=== PATIENT | female | born 1955 | race Caucasian/White ===

== ENCOUNTER 2021-08-11 20:28 | Inpatient (IN) | payer OTHER, SELFPAY ==
[~2021-08-11 20:28] MED LIST: Iopamidol 370 76% 100 ML VIAL ONE
[2021-08-11 20:58] LABS: #Eosinphils 0.1 10x3/uL (0.0-0.5); #Monocytes 0.6 10x3/uL (0.0-1.1); #Neutrophils 2.9 10x3/uL (1.5-8.4); %Basophils 0.8 % (0.0-2.0); %Eosinophils 1.7 % (0.0-6.0); %Lymphocytes 32.5 % (18.0-47.0); %Monocytes 10.9 % (0.0-10.0); %Neutrophils 53.9 % (40.0-75.0); Hemoglobin 11.8 g/dL (12.0-15.5); Mean Corpuscular HGB CONC 34.2 g/dL (32.0-36.0); Mean Corpuscular Hemoglobin 30.4 pg (27.0-33.0); Mean Corpuscular Volume 88.9 fl (81.6-98.3); Mean Platelet Volume 8.6 fl (7.4-10.4); Platelet Count 302 10x3/uL (150-450); RBC Distribution Width 13.5 % (11.5-14.5); Red Blood Cell (RBC) Count 3.88 10x6/uL (3.90-5.03); White Blood Cell (WBC) Count 5.3 10x3/uL (3.5-10.5)
[2021-08-11 21:13] LABS: ALT (SGPT) 11 U/L (8-55); AST (SGOT) 18 U/L (5-34); Albumin 3.6 g/dL (3.4-4.8); Alkaline Phosphatase 73 U/L (40-110); Anion Gap 14 mmol/L (10-20); BUN (Urea Nitrogen) 12 mg/dL (9.8-20.1); Bilirubin, Total 0.2 mg/dL (0.2-1.2); Calc. Creatinine Clearance 0 mL/min (70-130); Calcium 8.2 mg/dL (7.8-10.44); Carbon Dioxide 22 mmol/L (23-31); Chloride 99 mmol/L (98-107); Globulin 2.9 g/dL (2.4-3.5); Glucose 104 mg/dL (80-115); Lipase 18 U/L (8-78); Potassium 3.9 mmol/L (3.5-5.1); Protein, Total 6.5 g/dL (5.8-8.1); Sodium 131 mmol/L (136-145)
[2021-08-11] MEDS ORDERED: Albuterol Sulfate 2.5 mg/3 ml Neb ONE (21:30)
[2021-08-11] MEDS ORDERED: methylPREDNISolone Sod Succ/PF 125 MG/2 ML VIAL ONE (21:32)
[2021-08-11] MEDS ORDERED: Morphine 4 MG/ML VIAL ONE (21:33)
[2021-08-11 22:59] LABS: Bilirubin Neg (Negative); Blood, Urine 10 (Negative); Clarity Clear (Clear); Glucose, Urine (Dipstick) Normal (Negative); Ketone, Urine Negative (Negative); Leukocyte 25 (Negative); Nitrite Negative (Negative); Protein, Urine (Dipstick) Negative (Neg-Trace); Specific Gravity, Urine 1.005 (1.002-1.036); Urobilinogen Normal mg/dL (Less than 2)
[2021-08-11 23:09] LABS: Bacteria/HPF Rare-Few HPF (None Seen); RBC/HPF 0-3 HPF (0-3); Squamous Epithelial 0-3 HPF (0-3)
[2021-08-11 23:55] LABS: SARS-CoV-2 NAA Rapid Test Not Detected (NotDetected)
[2021-08-12] MEDS ORDERED: Zolpidem Tartrate 5 MG TAB PO PRN (00:12)
[2021-08-12] MEDS ORDERED: Senokot S 8.6-50 MG TAB PO PRN (00:12)
[2021-08-12] MEDS ORDERED: HYDROcodone/Acetaminophen 5/325 mg Tablet PO PRN (00:12)
[2021-08-12] MEDS ORDERED: Guaifenesin DM 100-10/5 ML UDCUP PO PRN (00:12)
[2021-08-12] MEDS ORDERED: Ondansetron PF 4 MG/2 ML Vial IVP PRN (00:12)
[2021-08-12] MEDS ORDERED: Calcium Carbonate 500 MG ChewTAB PO PRN (00:12)
[2021-08-12] MEDS ORDERED: Oseltamivir 75 MG CAP PO SCH ×2 (00:30→12:00)
[2021-08-12 01:59] VITALS: BMI 26.0
[2021-08-12] MEDS ORDERED: Guaifenesin DM 100-10/5 ML UDCUP ONE (04:51)
[2021-08-12 04:57] LABS: Anion Gap 13 mmol/L (10-20); BUN (Urea Nitrogen) 9 mg/dL (9.8-20.1); Calc. Creatinine Clearance 84 mL/min (70-130); Calcium 8.7 mg/dL (7.8-10.44); Carbon Dioxide 25 mmol/L (23-31); Chloride 102 mmol/L (98-107); Glucose 156 mg/dL (80-115); Potassium 3.9 mmol/L (3.5-5.1); Sodium 136 mmol/L (136-145)
[2021-08-12 05:59] LABS: Legionella Urinary Ag Negative (Negative); Strep pneumo Urine Ag NEGATIVE (NEGATIVE)
[2021-08-12] MEDS ORDERED: methylPREDNISolone Sod Succ 40 MG VIAL IVP SCH (06:00)
[2021-08-12] MEDS ORDERED: Mometasone/Formoterol 200/5 60 PUFF INH SCH ×2 (06:30→11:45)
[2021-08-12] MEDS ORDERED: cycloSPORINE, Modified 100 MG CAP PO SCH (09:00)
[2021-08-12] MEDS: Enoxaparin Sodium 40 MG/0.4 ML SYRINGE SC SCH (10:29)
[2021-08-12] MEDS: Benzonatate 100 MG CAP PO SCH ×3 (10:29→20:44)
[2021-08-12] MEDS: guaiFENesin ER 600 MG TAB PO SCH ×2 (10:37→21:41)
[2021-08-12] MEDS: Clopidogrel Bisulfate 75 MG TAB PO SCH (10:37)
[2021-08-12] MEDS: cycloSPORINE, Modified 25 MG CAP PO SCH ×2 (10:38→20:48)
[2021-08-12] MEDS: methylPREDNISolone Sod Succ 40 MG VIAL IVP SCH ×2 (13:21→21:42)
[2021-08-12] MEDS: Mometasone/Formoterol 200/5 60 PUFF INH SCH (19:37)
[2021-08-12] MEDS: clonazePAM 0.5 MG TAB PO PRN (20:44)
[2021-08-12] MEDS: Amitriptyline HCl 10 MG TAB PO SCH (21:41)
[2021-08-12] MEDS: Oseltamivir 75 MG CAP PO SCH (21:41)
[2021-08-13 04:30] LABS: #Monocytes 0.3 10x3/uL (0.0-1.1); #Neutrophils 4.7 10x3/uL (1.5-8.4); %Basophils 0.2 % (0.0-2.0); %Lymphocytes 11.3 % (18.0-47.0); %Monocytes 4.6 % (0.0-10.0); %Neutrophils 83.7 % (40.0-75.0); Hemoglobin 12.4 g/dL (12.0-15.5); Mean Corpuscular HGB CONC 33.9 g/dL (32.0-36.0); Mean Corpuscular Hemoglobin 30.1 pg (27.0-33.0); Mean Corpuscular Volume 88.8 fl (81.6-98.3); Mean Platelet Volume 8.7 fl (7.4-10.4); Platelet Count 375 10x3/uL (150-450); RBC Distribution Width 13.5 % (11.5-14.5); Red Blood Cell (RBC) Count 4.12 10x6/uL (3.90-5.03); White Blood Cell (WBC) Count 5.6 10x3/uL (3.5-10.5)
[2021-08-13 04:42] LABS: Anion Gap 17 mmol/L (10-20); BUN (Urea Nitrogen) 15 mg/dL (9.8-20.1); Calc. Creatinine Clearance 83 mL/min (70-130); Carbon Dioxide 20 mmol/L (23-31); Chloride 105 mmol/L (98-107); Glucose 152 mg/dL (80-115); Potassium 3.4 mmol/L (3.5-5.1); Sodium 139 mmol/L (136-145)
[2021-08-13] MEDS: Mometasone/Formoterol 200/5 60 PUFF INH SCH ×2 (07:09→19:50)
[2021-08-13] MEDS ORDERED: Potassium Chloride 20 MEQ TAB PO SCH (07:30)
[2021-08-13] MEDS: Benzonatate 100 MG CAP PO SCH ×3 (08:35→20:58)
[2021-08-13] MEDS: Enoxaparin Sodium 40 MG/0.4 ML SYRINGE SC SCH (08:35)
[2021-08-13] MEDS: methylPREDNISolone Sod Succ 40 MG VIAL IVP SCH ×2 (08:35→20:59)
[2021-08-13] MEDS: cycloSPORINE, Modified 25 MG CAP PO SCH ×2 (08:36→21:04)
[2021-08-13] MEDS: Clopidogrel Bisulfate 75 MG TAB PO SCH (08:43)
[2021-08-13] MEDS: Oseltamivir 75 MG CAP PO SCH ×2 (08:44→20:58)
[2021-08-13] MEDS: guaiFENesin ER 600 MG TAB PO SCH ×2 (08:44→20:58)
[2021-08-13] MEDS: clonazePAM 0.5 MG TAB PO PRN (20:58)
[2021-08-13] MEDS: Amitriptyline HCl 10 MG TAB PO SCH (20:58)
[2021-08-14 04:59] LABS: Anion Gap 15 mmol/L (10-20); BUN (Urea Nitrogen) 16 mg/dL (9.8-20.1); Calc. Creatinine Clearance 91 mL/min (70-130); Calcium 8.8 mg/dL (7.8-10.44); Carbon Dioxide 23 mmol/L (23-31); Cardiac Risk 4.2 (Less than 4.5); Chloride 106 mmol/L (98-107); Cholesterol 152 mg/dl (< 200 Desired); Glucose 143 mg/dL (80-115); HDL Cholesterol 36 mg/dL (>60 Neg Risk); LDL Cholesterol, Calculated 100 mg/dL; Magnesium 1.7 mg/dL (1.6-2.6); Potassium 4.1 mmol/L (3.5-5.1); Sodium 140 mmol/L (136-145); Triglycerides 82 mg/dL (Less than 150)
[2021-08-14 05:04] LABS: #Monocytes 0.2 10x3/uL (0.0-1.1); #Neutrophils 7.5 10x3/uL (1.5-8.4); %Basophils 0.1 % (0.0-2.0); %Lymphocytes 9.2 % (18.0-47.0); %Monocytes 2.1 % (0.0-10.0); Hemoglobin 12.2 g/dL (12.0-15.5); Mean Corpuscular HGB CONC 33.8 g/dL (32.0-36.0); Mean Corpuscular Hemoglobin 30.3 pg (27.0-33.0); Mean Corpuscular Volume 89.6 fl (81.6-98.3); Mean Platelet Volume 8.9 fl (7.4-10.4); Platelet Count 375 10x3/uL (150-450); Red Blood Cell (RBC) Count 4.03 10x6/uL (3.90-5.03); White Blood Cell (WBC) Count 8.5 10x3/uL (3.5-10.5)
[2021-08-14 05:05] LABS: Lactic Acid 2.3 mmol/L (0.5-2.2)
[2021-08-14 05:45] LABS: Actual Bicarbonate (HCO3v) 25 mEq/L (22-28); Base Excess 0.4 mEq/L (-2.0 to +3.0); Calcium, Ionized (venous) 1.15 mmol/L (1.16-1.32); Chloride (VBG) 105 mmol/L (98-106); Hemoglobin (Hb) 13.1 g/dL (11.7-16.1); Potassium (VBG) 4.04 mmol/L (3.70-5.30); Puncture Site Other Site; Sodium 138.7 mmol/L (133-146); pH (venous) 7.43 (7.32-7.43)
[2021-08-14] MEDS: Mometasone/Formoterol 200/5 60 PUFF INH SCH ×2 (06:30→20:15)
[2021-08-14] MEDS: Oseltamivir 75 MG CAP PO SCH ×2 (10:31→20:48)
[2021-08-14] MEDS: methylPREDNISolone Sod Succ 40 MG VIAL IVP SCH (10:31)
[2021-08-14] MEDS: Clopidogrel Bisulfate 75 MG TAB PO SCH (10:31)
[2021-08-14] MEDS: guaiFENesin ER 600 MG TAB PO SCH ×2 (10:31→20:48)
[2021-08-14] MEDS: Enoxaparin Sodium 40 MG/0.4 ML SYRINGE SC SCH (10:32)
[2021-08-14] MEDS: Benzonatate 100 MG CAP PO SCH ×3 (10:32→20:48)
[2021-08-14] MEDS: cycloSPORINE, Modified 25 MG CAP PO SCH ×2 (10:33→20:48)
[2021-08-14 12:48] LABS: Hemoglobin A1c 5.9 % (4.0-6.0)
[2021-08-14] MEDS: Acetaminophen 325 MG TAB PO PRN (18:24)
[2021-08-14] MEDS: clonazePAM 0.5 MG TAB PO PRN (20:47)
[2021-08-14] MEDS: Amitriptyline HCl 10 MG TAB PO SCH (20:48)
[2021-08-15 04:44] LABS: #Monocytes 0.5 10x3/uL (0.0-1.1); #Neutrophils 5.2 10x3/uL (1.5-8.4); %Basophils 0.1 % (0.0-2.0); %Monocytes 7.1 % (0.0-10.0); %Neutrophils 72.4 % (40.0-75.0); Hemoglobin 11.5 g/dL (12.0-15.5); Mean Corpuscular HGB CONC 33.6 g/dL (32.0-36.0); Mean Corpuscular Volume 89.3 fl (81.6-98.3); Platelet Count 352 10x3/uL (150-450); Red Blood Cell (RBC) Count 3.83 10x6/uL (3.90-5.03); White Blood Cell (WBC) Count 7.2 10x3/uL (3.5-10.5)
[2021-08-15 05:07] LABS: Anion Gap 13 mmol/L (10-20); BUN (Urea Nitrogen) 18 mg/dL (9.8-20.1); Calc. Creatinine Clearance 83 mL/min (70-130); Calcium 8.8 mg/dL (7.8-10.44); Carbon Dioxide 25 mmol/L (23-31); Chloride 105 mmol/L (98-107); Glucose 117 mg/dL (80-115); Magnesium 1.8 mg/dL (1.6-2.6); Potassium 4.3 mmol/L (3.5-5.1); Sodium 139 mmol/L (136-145)
[2021-08-15] MEDS: Mometasone/Formoterol 200/5 60 PUFF INH SCH (07:03)
[2021-08-15] MEDS ORDERED: predniSONE 50 MG TAB PO SCH (08:00)
[2021-08-15] MEDS: Enoxaparin Sodium 40 MG/0.4 ML SYRINGE SC SCH (11:07)
[2021-08-15] MEDS: Acetaminophen 325 MG TAB PO PRN (11:13)
[2021-08-15] MEDS: Clopidogrel Bisulfate 75 MG TAB PO SCH (11:14)
[2021-08-15] MEDS: Oseltamivir 75 MG CAP PO SCH (11:14)
[2021-08-15] MEDS: guaiFENesin ER 600 MG TAB PO SCH (11:14)
[2021-08-15] MEDS: Benzonatate 100 MG CAP PO SCH (11:14)
[2021-08-15 12:52] VITALS: BP 138/85; TEMP 97.4
== END 2021-08-15 13:20 | disposition home or self-care (01) | DRG 193 ==
LOC: CSHERS 20:28 → CSHTELE 08-12 01:43 → OBSVTOIN 08-12 01:44 → CSHTELE 08-12 21:18
PROVIDERS: ADMIT Student in an Organized Health Care Education/Training Program; ATTEND Family Medicine
DX: J10.08 Influenza due to other identified influenza virus with other specified pneumonia (principal); J96.01 Acute respiratory failure with hypoxia; E87.1 Hypo-osmolality and hyponatremia; N39.0 Urinary tract infection, site not specified; D84.9 Immunodeficiency, unspecified; J12.9 Viral pneumonia, unspecified; J44.1 Chronic obstructive pulmonary disease with (acute) exacerbation; J44.0 Chronic obstructive pulmonary disease with (acute) lower respiratory infection; I48.0 Paroxysmal atrial fibrillation; I10 Essential (primary) hypertension; E05.90 Thyrotoxicosis, unspecified without thyrotoxic crisis or storm; M35.02 Sjogren syndrome with lung involvement; Z20.822 Contact with and (suspected) exposure to COVID-19; Z88.1 Allergy status to other antibiotic agents; Z86.16 Personal history of COVID-19; Z90.49 Acquired absence of other specified parts of digestive tract; Z98.890 Other specified postprocedural states; Z79.02 Long term (current) use of antithrombotics/antiplatelets; Z79.899 Other long term (current) drug therapy; Z82.49 Family history of ischemic heart disease and other diseases of the circulatory system
CPT/HCPCS: 36415; 71045; 71275; 80048; 80053; 80061; 81003; 81015; 82805; 83036; 83605; 83690; 83735; 83880; 84439; 84443; 84484; 85025; 85379; 85652; 86140; 87040; 87086; 87449; 87899; 93005; 93970; 94640; 94664; 94760; J1650; J1956; J2270; J2920; J2930; J7512; J7515; J7611; J7620; Q9967